=== PATIENT | male | born 1980 | race Two or more races ===

== ENCOUNTER 2025-02-12 00:56 | Emergency (ER) | payer OTHER ==
[~2025-02-12] VITALS: Ht 170.2 cm; Wt 72.6 kg
[2025-02-12 01:10] VITALS: TEMP 98.8
--- NOTE | 2025-02-12 01:21 | ECG ---
[facility] Test Date: 2025-02-12 Test Time: 01:03:59 Pat Name: MARION PITT Department: ED Room: Gender: M Protective Service Specialist: DARLEEN : 1980 Requested By: NONA MILES* Order Number: [id number] Reading MD: Balbir Bentley Measurements Intervals [place] Rate: 83 P: 64 [place]: 132 QRS: 30 QRSD: 99 T: 64 QT: 370 QTc: 435 Interpretive Statements Sinus rhythm Electronically Signed On 02-14-2025 17:18:46 PST by Balbir Bentley Please click the below link to view image of tracing.
[2025-02-12] MEDS: IPRATROPIUM BROM 0.5 MG/2.5ML INH SOL NEB ONE (01:30)
[2025-02-12] MEDS: ALBUTEROL SULF 2.5 MG/0.5ML(0.5%) NEB SOLN NEB ONE (01:30)
[2025-02-12 01:46] VITALS: BP 130/76; PULSE 90; RESP 26; O2SAT 95
[2025-02-12] MEDS: methylPREDNISolone SOD SUCC 125 MG/2 ML VL IM ONE (02:00)
--- NOTE | 2025-02-12 02:52 | DVH ---
CHEST RADIOGRAPH INDICATION: cough TECHNIQUE: Single frontal view of the chest was obtained COMPARISON: CXRP on DOS: 12/26/21 FINDINGS: Lines and Tubes: None Lungs: Mild diffuse right upper lung zone pulmonary infiltrate. Small left pleural effusion. No pneumothorax. Cardiomediastinal contours: Unremarkable Bones: Unremarkable IMPRESSION: 1. Mild diffuse right upper lung zone pulmonary infiltrate. 2. Small left pleural effusion.
[2025-02-12] MEDS ORDERED: PRED20TA2 PO (02:56)
[2025-02-12] MEDS ORDERED: AUG875T PO (02:56)
--- NOTE | 2025-02-12 02:57 | ED.PDOC ---
SOB-HPI HPI Comments 44-year-old male brought in by EMS. Patient states he was having chest co ngestion and cough for the last five days. States he is in the midst of moving to [place], he had a cleaned his steve cage which he knows he is allergic to, states it was also a lot of dust. He started having tightness in his chest. States he has anxiety kicked in any felt as though he can not breathe. EMS arrived and on the route and he was able to calm down mildly. States he is feeling some better but he has been having this cough and congestion. States he does have breathing treatments at home but he has not been using it much. Patient also reports a history of lung resection due to possible lung cancer. States he had a lobe from the left-sided removed. Patient denies any fever. No chest pain. Chief Complaint: Shortness of Breath Time Seen by MD: :09 Reviewed notes: Nurses Notes Information Source: Patient Mode of Arrival: EMS Severity: Mild Past Medical History PAST MEDICAL HISTORY: Asthma Constitutional: denies: chills, diaphoresis, fatigue, fever, malaise, sweats, weakness, others EENTM: denies: blurred vision, double vision, ear bleeding, ear discharge, ear drainage, ear pain, ear ringing, eye pain, eye redness, hearing loss, mouth pain, mouth swelling, nasal discharge, nose bleeding, nose congestion, nose pain, photophobia, tearing, throat pain, throat swelling, voice changes, others Respiratory: reports: shortness of breath, wheezing; denies: cough, hemoptysis, orthopnea, SOB at rest, SOB with excertion, stridor, others Physical Exam General Appearance: No Apparent Distress, Normal HEENT: Normal ENT Inspection, Pharynx Normal, TMs Normal Neck: Full Range of Motion, Non-Tender, Normal, Normal Inspection Respiratory: Chest Non-Tender, No Accessory Muscle Use, No Respiratory Distress, Wheezing (Right-sided lungs) Cardiovascular: No Edema, No JVD, No Murmur, No Gallop, Normal Peripheral Pulses, Regular Rate/Rhythm Breast Exam: Deferred Gastrointestinal: No Organomegaly, Non Tender, No Pulsatile Mass, Normal Bowel Sounds, Soft Genitalia: Deferred Pelvic: Deferred Rectal: Deferred Extremities: No calf tenderness, Normal capillary refill, Normal inspection, Normal range of motion, Non-tender, No pedal edema Musculoskeletal : Apperance: Normal Neurologic: Alert, manager strategy II-XII nml as Tested, No Motor Deficits, Normal Affect, Normal Mood, No Sensory Deficits Cerebellar Function: Normal Reflexes: Normal Skin: Dry, Normal Color, Warm Lymphatic: No Adenopathy Was a procedure done? Was a procedure done?: No Differential Dx Differential Diagnosis: Anxiety, Asthma, Bronchitis, Pneumothorax X-Ray, Labs, Meds, VS Vital Signs Date Time Temp Pulse Resp B/P (MAP) Pulse Ox O2 Delivery O2 Flow Rate FiO2 02/12/25 01:46 90 26 130/76 (94) 95 02/12/25 01:31 20 Room Air* 0 21 02/12/25 01:10 98.8 101 26 115/74 97 98.8 02/12/25 01:03 83 Current Medications Medications (Trade) Dose Ordered Sig/Alfred Route Start Time Stop Time Status Last Admin Albuterol (Ventolin Medneb) 2.5 mg ONCE ONCE NEB 02/12/25 01:30 02/12/25 01:31 DC 02/12/25 01:30 Ipratropium [place] (Atrovent Medneb) 0.5 mg ONCE ONCE NEB 02/12/25 01:30 02/12/25 01:31 DC 02/12/25 01:30 Methylprednisolone Sodium Succinate (Solu Medrol) 125 mg ONCE ONCE IM 02/12/25 01:30 02/12/25 01:31 DC 02/12/25 02:00 X-Ray, Labs, Meds, VS Comment Imaging was reviewed by this provider, opacities noted in the right upper lobe. Pending radiology review Labs were reviewed by this provider, no abnormalities Vital signs reviewed by this provider, clinically stable Due to patient's lung condition, patient be treated for pneumonia, patient will be given 1 g Rocephin in office and sent home with Augmentin. Time of 1ST Reevaluation: 02:57 Reevaluation 1ST: Improved Patient Education/Counseling: Diagnosis, Treatment, Need For Follow Up (Follow up in the emergency department the next 24-48 hours if no significant improvement.) Family Education/Counseling: Diagnosis, Treatment SEPSIS Sepsis Screen Date sepsis recognized/suspect: Feb 12, 2025 Time Sepsis recognized/suspect: 014 Recent Procedure: No On Antibiotic Therapy: No Respiratory Rate >20: Yes Heart Rate >90: Yes Temp<36 C (96.8 F) or >38.3 C: No SBP <90 or MAP <65 mmHG: No New Acute Mental Status Change: No Is the patient on CPAP, BIPAP,: No Physician Orders Chest Xray 1 View (02/12/25 01:20) Vital Signs Date Time Temp Pulse Resp B/P (MAP) Pulse Ox O2 Delivery O2 Flow Rate FiO2 02/12/25 01:46 90 26 130/76 (94) 95 02/12/25 01:31 20 Room Air* 0 21 02/12/25 01:10 98.8 101 26 115/74 97 98.8 02/12/25 01:03 83 Medications Medications Dose Ordered Sig/Alfred Route Start Time Stop Time Status Last Admin Dose Admin Albuterol 2.5 mg ONCE ONCE NEB 02/12/25 01:30 02/12/25 01:31 DC 02/12/25 01:30 Ipratropium [place] 0.5 mg ONCE ONCE NEB 02/12/25 01:30 02/12/25 01:31 DC 02/12/25 01:30 Methylprednisolone Sodium Succinate 125 mg ONCE ONCE IM 02/12/25 01:30 02/12/25 01:31 DC 02/12/25 02:00 Departure 1 Departure Time of Disposition: 02:55 Impression: Primary Impression: Pneumonia Qualified Codes: J18.9 - Pneumonia, unspecified organism Disposition: 01 HOME / SELF CARE / HOMELESS Condition: Stable e-Prescriptions Prednisone (Prednisone) 20 Mg Tab 40 MG PO DAILY for 5 Days, #10 MG Prov: NONA HOFF 02/12/25 Amoxicillin & Pot Clavulanate (AUGMENTIN TABLET) 875 Mg Tb 875 MG PO BID for 10 Days, #20 TAB Prov: NONA HOFF 02/12/25 Discharged With: Self Critical Care Note Critical Care Time?: No Stability Stability form required: No Heart Score Heart Score: Heart Score Response (Comments) Value History N/A 0 EKG N/A 0 Age N/A 0 Risk Factors N/A 0 Troponin N/A 0 Total 0 NONA HOFF Feb 12, 2025 02:57
[2025-02-12] MEDS: cefTRIAXone SOD 1,000 MG VL IM ONE (03:26)
== END 2025-02-12 03:38 | disposition home or self-care (01) ==
LOC: ER 00:56 → EDBD 00:56 → ER 03:38
DX: J18.9 Pneumonia, unspecified organism (principal); J45.909 Unspecified asthma, uncomplicated; F41.9 Anxiety disorder, unspecified; Z79.899 Other long term (current) drug therapy
CPT/HCPCS: 71045; 93005; 94640; 96372; 99284; J0696; J2919